=== PATIENT | female | born 1940 | race African-American/Black ===

== ENCOUNTER 2019-03-14 08:55 | Outpatient (CLI) | payer MEDICARE ==
--- NOTE | 2019-03-14 10:23 | MMO ---
Bilateral MAMMO Bilat Diag DDI+ANTELMO. CLINICAL HISTORY: Patient is 78 years old and is seen for diagnostic exam and lump or thickening in the left breast. The patient has no family history of breast cancer. The patient has no personal history of cancer. The patient has a history of left Excisional Biopsy in 2016 - benign. VIEWS: The views performed were: bilateral craniocaudal with tomosynthesis; bilateral mediolateral oblique with tomosynthesis; and bilateral mediolateral with tomosynthesis. FILMS COMPARED: The present examination has been compared to prior imaging studies performed at [facility] on 07/23/2012, 08/08/2014, 08/10/2015 and 03/14/2019. This study has been interpreted with the assistance of computer-aided detection. MAMMOGRAM FINDINGS: There are scattered fibroglandular densities. Finding 1: There are stable benign appearing calcifications seen in both breasts. There are also vascular calcifications. Finding 2: There are new post operative changes seen in the left breast. Finding 3: There is a high density, oval mass measuring 25 millimeters with circumscribed margins seen in the upper-outer region of the left breast. IMPRESSION: FINDING 3: MASS IN THE LEFT BREAST IS SUSPICIOUS. AN ULTRASOUND-GUIDED BREAST BIOPSY IS RECOMMENDED. RESULTS AND RECOMMENDATIONS DISCUSSED WITH THE PATIENT AND QUESTIONS ANSWERED. THE RESULTS OF THIS EXAM WERE SENT TO THE PATIENT. ACR BI-RADS Category 4 - Suspicious abnormality - biopsy should be considered MAMMOGRAPHY NOTE: 1. A negative mammogram report should not delay a biopsy if a dominant of clinically suspicious mass is present. 2. Approximately 10% to 15% of breast cancers are not detected by mammography. 3. Adenosis and dense breasts may obscure an underlying neoplasm. Reported by: ZAHEER TODD MD Electonically Signed: [id number]
--- NOTE | 2019-03-14 11:30 | ULT ---
LIMITED LEFT BREAST ULTRASOUND: DATE: 03/14/2019. PROVIDED CLINICAL HISTORY: Left breast palpable abnormality. FINDINGS: Limited sonographic interrogation of the left breast was performed in the region of mammographic and palpable concern. There is a circumscribed hypoechoic mass with internal vascularity at the 1:30 pos ition of the left breast corresponding to the palpable and mammographic finding. This demonstrates s mooth margins and no definite associated shadowing. This is oval to round in shape. This measures a bout 2.5 x 1.7 x 2.1 cm. IMPRESSION: BIRADS category 4 - suspicious abnormality. Ultrasound-guided biopsy is recommended of the left [address] st mass at 1:30. Results and recommendations discussed with the patient and questions answered. POS: OFF
== END 2019-03-14 08:56 | disposition home or self-care (01) ==
LOC: BICMAMMO 08:55
PROVIDERS: ATTEND Family Medicine
DX: N64.4 Mastodynia (principal)
CPT/HCPCS: 76642; 77066; G0279

== ENCOUNTER → 2019-04-23 | Day surgery (SDC) | payer MEDICARE ==
--- NOTE | 2019-04-23 15:59 | ULT ---
SONOGRAPHIC-GUIDED BIOPSY LEFT BREAST MASS: HISTORY: Left breast mass. FINDINGS: After explaining the procedure and answering all questions, the lobular heterogeneous mass at the sup erolateral aspect of the left breast was again visualized. Sterile technique, buffered local anesthe lio, sonographic guidance, and a lateral approach were used to carefully advance a 14-gauge core biop sy needle to the level of the lobular heterogeneous mass. A total of 2 core specimens were obtained and eventually submitted to pathology for evaluation. At the time of each biopsy acquisition, liquid was seen to mix within the heterogeneous mass and leak out of the needle tract. Localization clip was placed in the biopsy bed under sonographic control. The patient tolerated the procedure well and was eventually dismissed in good condition. IMPRESSION: Technically successful sonographic-guided biopsy left breast mass. Appearance of the mass at the wili e of biopsy suggests that it is a complex fluid collection such as abscess. Pathology is pending. POS: RONIT
--- NOTE | 2019-04-24 10:13 | MMO ---
Left Breast MAMMO Unilat Diag DDI LT. CLINICAL HISTORY: Patient is 78 years old and is seen for diagnostic exam. The patient has no family history of breast cancer. The patient has no personal history of cancer. The patient has a history of left Excisional Biopsy in 2016 - benign. VIEWS: The views performed were: right craniocaudal and right mediolateral oblique. FILMS COMPARED: The present examination has been compared to prior imaging studies performed at [facility] on 08/08/2014, 08/10/2015 and 03/14/2019. This study has been interpreted with the assistance of computer-aided detection. MAMMOGRAM FINDINGS: There are scattered fibroglandular densities. There is a new biopsy clip seen in the upper-outer region of the left breast. IMPRESSION: NEW BIOPSY CLIP IN THE LEFT BREAST IS CONFIRMED UTILIZING POST PROCEDURE MAMMOGRAM. THE RESULTS OF THIS EXAM WERE SENT TO THE PATIENT. MAMMOGRAPHY NOTE: 1. A negative mammogram report should not delay a biopsy if a dominant of clinically suspicious mass is present. 2. Approximately 10% to 15% of breast cancers are not detected by mammography. 3. Adenosis and dense breasts may obscure an underlying neoplasm. Reported by: RIVER GARCIA MD Electonically Signed: [id number]
== END ==
LOC: BICULT 11:38
PROVIDERS: ATTEND Family Medicine
PROC: 0H9 Skin and Breast, Drainage (ICD-10-PCS; principal; 2019-04-23)
DX: N63.21 Unspecified lump in the left breast, upper outer quadrant (principal); Z88.0 Allergy status to penicillin
CPT/HCPCS: 19083; 88305; 88341; 88342

== ENCOUNTER 2019-10-06 12:53 | Observation (INO) | payer MEDICARE ==
[2019-10-06 13:29] LABS: #Basophils 0.1 thou/uL (0.0-0.2); #Eosinphils 0.3 thou/uL (0.0-0.7); #Lymphocytes 2.2 thou/uL (1.20-3.40); #Monocytes 0.5 thou/uL (0.11-0.59); #Neutrophils 3.2 thou/uL (1.40-6.50); %Basophils 1.3 % (0.0-1.0); %Eosinophils 4.3 % (0.0-10.0); %Lymphocytes 35.6 % (21.0-51.0); %Monocytes 7.5 % (0.0-10.0); %Neutrophils 51.2 % (42.0-75.0); Hemoglobin 11.4 g/dL (12.0-16.0); Mean Corpuscular HGB CONC 31.6 g/dL (32.0-36.0); Mean Corpuscular Hemoglobin 30.1 pg (27.0-31.0); Mean Corpuscular Volume 95.3 fL (78.0-98.0); Mean Platelet Volume 8.4 fL (7.4-10.4); Platelet Count 198 thou/uL (130-400); RBC Distribution Width 13.4 % (11.5-14.5); Red Blood Cell (RBC) Count 3.79 mill/uL (4.20-5.40); White Blood Cell (WBC) Count 6.2 thou/uL (4.8-10.8)
[2019-10-06 13:48] LABS: ALT (SGPT) 7 U/L (8-55); AST (SGOT) 17 U/L (5-34); Albumin 3.7 g/dL (3.4-4.8); Alkaline Phosphatase 63 U/L (40-110); Anion Gap 11 mmol/L (10-20); BUN (Urea Nitrogen) 19 mg/dL (9.8-20.1); Bilirubin, Total 0.3 mg/dL (0.2-1.2); CK (CPK) 229 U/L (29-168); Calc. Creatinine Clearance 0 mL/min (70-130); Calcium 9.1 mg/dL (7.8-10.44); Carbon Dioxide 25 mmol/L (23-31); Chloride 108 mmol/L (98-107); Estimated GFR-MDRD 43; Globulin 3.6 g/dL (2.4-3.5); Glucose 83 mg/dL (83-110); Potassium 4.1 mmol/L (3.5-5.1); Protein, Total 7.3 g/dL (6.0-8.3); Sodium 140 mmol/L (136-145)
--- NOTE | 2019-10-06 14:20 | RAD ---
PORTABLE CHEST ONE VIEW: Date: 10-06-2019 Time: 1:26 p.m. History: Syncope and collapse FINDINGS: Comparison made with exam of 01-14-14. The heart is enlarged. There is continued elevation of the right hemidiaphragm. The lungs are well ex panded without lobar consolidation, pneumothoraces, jackelin pulmonary edema or pleural effusions. IMPRESSION: No acute process. POS: ISRRAEL
[2019-10-06] MEDS ORDERED: Amlodipine 10 MG TAB PO SCH (15:30)
--- NOTE | 2019-10-06 15:36 | RAD ---
EXAM: 3 views of the right wrist HISTORY: Wrist pain after fall COMPARISON: None FINDINGS: 3 views of the right wrist shows severe degenerative changes of the radiocarpal joint. Ther e is an irregular appearance of the scaphoid which may represent degenerative change, but an acute fracture through the scaphoid cannot be excluded. Moderate diffuse soft tissue swelling is seen. IMPRESSION: Severe degenerative changes joint with questionable acute scaphoid abnormality.
--- NOTE | 2019-10-06 15:37 | RAD ---
EXAM: 2 views of the right humerus HISTORY: right arm pain after fall COMPARISON: None FINDINGS: 2 views of the right humerus shows no evidence of acute fracture or dislocation. No degener ative changes are seen. No soft tissue swelling is present. IMPRESSION: No evidence of acute osseous abnormality.
--- NOTE | 2019-10-06 15:37 | RAD ---
EXAM: 4 views of the right elbow HISTORY: Elbow pain after fall COMPARISON: None FINDINGS: No elbow effusion is seen. There is no evidence of acute fracture or dislocation. No signi ficant degenerative changes are seen. No soft tissue swelling is present. IMPRESSION: No evidence of acute osseous abnormality.
[2019-10-06] MEDS ORDERED: Ondansetron ODT 4 MG TAB PO PRN (16:38)
[2019-10-06] MEDS ORDERED: Acetaminophen 325 MG TAB PO PRN (16:38)
--- NOTE | 2019-10-06 16:42 | CT ---
CT head noncontrast HISTORY: Syncope. COMPARISON: 01/20/2007. FINDINGS: There is no evidence of acute intracranial hemorrhage or infarct. The ventricles appear nor mal in size, shape and position. There is no mass effect or shift of midline structures. Densely calcified lesion along the left side of the anterior falx is stable. IMPRESSION : No acute intracranial abnormalities are demonstrated.
[2019-10-06] MEDS ORDERED: hydrALAZINE 20 MG/ML VIAL SLOW IVP SCH (16:46)
--- NOTE | 2019-10-06 16:59 | PDOC.FPRHP ---
- History of Present Illness Chief Complaint: fall History of Present Illness: 79 y/o F with PMHx HTN, CAD s/p stents presented to the ED with arm pain after a fall occuring around 1000 the previous day. She states she was going outside to walk her dogs, when she fell on her porch, landing on her R side. She does endorse LOC, and believes she was only down for a short time. She denies any dizziness or lightheadedness prior to the fall, but does believe she passed out. After the fall, she was able to get up on her own and get back into her home. After the fall, she developed pain in her R wrist and arm. The pain worsened overnight, and she tried to go to an urgent care near her home for her arm pain, but came to the ED because the urgent care was closed. She has not had previous falls or spells of LOC. Upon evaluation in the ED, she was noted to be hypertensive and bradycardic. She denies any symptoms of headache, chest pain, SOB, diaphoresis, palpitations. Reports that she checks her blood pressure daily at home, usually has SBP in the 130s but today was 160. She does not currently have a PCP, medications managed by her dimensional engineer in [place], Dr. Ramsay. She reports compliance with medications, including three anti-hypertensives, but she does not know which medications she is taking other than amlodipine. - Allergies/Adverse Reactions Allergies Allergy/AdvReac Type Severity Reaction Status Date / Time Penicillins Allergy Verified 06/07/19 20:47 - Home Medications Medication Instructions Recorded Confirmed Type Htn 08/22/12 08/22/12 History Naproxen [Naprosyn] 500 mg PO BID PRN #30 tab 08/22/12 Rx Thyroid Med 08/22/12 08/22/12 History Allopurinol 100 mg PO DAILY 10/07/19 10/07/19 History Atenolol 25 mg PO DAILY 10/07/19 10/07/19 History DULoxetine [Cymbalta] 60 mg PO DAILY 10/07/19 10/07/19 History Hydrochlorothiazide 12.5 mg PO DAILY 10/07/19 10/07/19 History Levothyroxine Sodium [Synthroid] 75 mcg PO DAILY 10/07/19 10/07/19 History Losartan Potassium 100 mg PO DAILY 10/07/19 10/07/19 History Omeprazole 40 mg PO DAILY 10/07/19 10/07/19 History Pravastatin Sodium 20 mg PO HS 10/07/19 10/07/19 History - History PMHx: CAD s/p stents, HTN PSHx: cardiac stents, breast biopsy FHx: unknown Social: Denies tobacco, etoh, drug use. Lives at home alone, feels safe at home. 2 sons, one who lives in [place] and one who lives in [place]. - Review of Systems General: denies: fever/chills, weight/appetite/sleep changes, night sweats, fatigue Eyes: denies: vision changes ENT: denies: nasal congestion Respiratory: denies: cough, congestion, shortness of breath Cardiovascular: denies: chest pain, palpitation, edema Gastrointestinal: denies: nausea, vomiting, diarrhea, constipation, abdominal pain Genitourinary: denies: dysuria Skin: denies: rashes Musculoskeletal: reports: pain Neurological: reports: syncope. denies: weakness - Vital signs BP: 204/63 HR: 54 RR: 18 Tmax: 98.2F Pox: 97% on RA Wt: 82.5kg - Physical Exam Constitutional: NAD, awake, alert and oriented HEENT: normocephalic and atraumatic, PERRLA, EOMI, conjunctiva clear, no scleral icterus, grossly normal vision, grossly normal hearing, MMM -HEENT: edentulous Neck: supple, no LAD Heart: normal S1/S2, no murmurs/rubs/gallops, no edema -Heart: bradycardia; pulses present in LUE, bilateral LE, unable to assess RUE due to splinting Lungs: CTAB, no respiratory distress, no rales/rhonchi, no wheezing, no retractions Abdomen: soft, non-tender, bowel sounds present, no masses/distention -Musculoskeletal: RUE ROM limited 2/2 pain, ROM otherwise intact. Splint in place on R hand/ forearm. Neurological: CN II-XII intact, other (5/5 strength) Skin: no rash/lesions Heme/Lymphatic: no unusual bruising or bleeding, no purpura, no LAD Psychiatric: normal mood and affect, good judgment and insight, intact recent and remote memory FMR H&P: Results - Labs Result Diagrams: 10/07/19 04:07 10/07/19 04:07 Lab results: WBC 6.2 thou/uL (4.8-10.8) 10/06/19 13:21 Hgb 11.4 g/dL (12.0-16.0) L 10/06/19 13:21 Hct 36.1 % (36.0-47.0) 10/06/19 13:21 MCV 95.3 fL (78.0-98.0) 10/06/19 13:21 Plt Count 198 thou/uL (130-400) 10/06/19 13:21 Neutrophils % 51.2 % (42.0-75.0) 10/06/19 13:21 Sodium 140 mmol/L (136-145) 10/06/19 13:21 Potassium 4.1 mmol/L (3.5-5.1) 10/06/19 13:21 Chloride 108 mmol/L (98-107) H 10/06/19 13:21 Carbon Dioxide 25 mmol/L (23-31) 10/06/19 13:21 BUN 19 mg/dL (9.8-20.1) 10/06/19 13:21 Creatinine 1.42 mg/dL (0.6-1.1) H 10/06/19 13:21 Glucose 83 mg/dL (83-110) 10/06/19 13:21 Calcium 9.1 mg/dL (7.8-10.44) 10/06/19 13:21 Total Bilirubin 0.3 mg/dL (0.2-1.2) 10/06/19 13:21 AST 17 U/L (5-34) 10/06/19 13:21 ALT 7 U/L (8-55) L 10/06/19 13:21 Alkaline Phosphatase 63 U/L (40-110) 10/06/19 13:21 Creatine Kinase 229 U/L (29-168) H 10/06/19 13:21 Serum Total Protein 7.3 g/dL (6.0-8.3) 10/06/19 13:21 Albumin 3.7 g/dL (3.4-4.8) 10/06/19 13:21 - EKG Interpretation EKG: EKG reviewed: sinus bradycardia, no evidence of heart block FMR H&P: A/P - Plan Syncopal episode, possible Leading to unwitnessed fall at home. Possibly due to bradycardia, EKG with sinus bradycardia. CT head negative. Initial troponin negative. -f/u repeat troponin -admit to tele -echo ordered Hypertensive urgency Reported SBP of >200 in ED, although noted that IV was placed under edge of cuff. Manually checked BP was SBP of 160. -10 mg hydralazine administered on admission -PRN hydralazine for SBP > 180 -will avoid labetalol as PRN due to bradycardia -continue to monitor vitals -will request medication list from pharmacy, [facility] in [place] Bradycardia HR 50s in the ED. Asymptomatic on admission although possibly a contributing factor to fall. No signs of heart block on EKG, sinus bradycardia. Consider cardiac etiology vs medication as cause. -continue to monitor on tele -echo as above -f/u TSH PEBBLES Cr 1.42, unknown baseline. -will check FeNa, start LR @ 75ml/h for 2 bags if signs of pre-renal PEBBLES Scaphoid fracture, possible -splinted in ED -f/u w/ ortho outpatient recommended CAD s/p stents Sees Dr. Ramsay, who has been managing her primary care since her PCP retired. Takes ASA at home. Unsure of other medications she is taking. -continue ASA Dispo: admit to tele, obs IVF: SL Diet: Regular diet PPx: lovenox FMR H&P: Upper Level - Plan Date/Time: 10/06/19 [id number] IMauricio DO, have evaluated this patient and agree with findings/plan as outlined by spring internship resident. Pertinent changes/additions are listed here. This is 79 yo female with a pmh of HLD, HTN who presents to the ER with a cc of a syncopal episode. She states that she was taking her dog outside when she woke up on the ground. She denies any head trauma or current headache but does report some right hand and wrist pain. She denies this happening before. She denies chest pain, SOB, nausea, vomiting, or dizziness. She denies any anticoagulation use at this time. She states her BP usually runs at 130/70s. She denies any palpitations or skipped beats. Objective: Vitals: BP 210/82, HR 56, RR 20, Temp 98.2, SpO2 97, Wt 82 kg General: NAD HEENT: AT/NC, MMM Cardio: bradycardic, regular, no murmurs Respiratory: CTAB, non-labored Extremities: 2+ pulses, no edema Neuro: CN II-XII grossly intact, moves all extremities, 5/5 strength, cerebellar testing negative A/P Syncope likely cardiogenic -Admit to tele obs -Consult cardiology in the AM -Will order TTE for tomorrow -Pending CT brain -CXR no acute process -Right elbow xray no evidence of acute process -XR humerus no acute process XR wrist: severe degenerative changes joint questionable acute scaphoid abnormality Possible right scaphoid fracture -S/P thumb spica splint -Pain management -Likely outpt orthopedics consultation PEBBLES vs. CKD 3 -Will monitor with BMP -Control BP -Gentle hydration after FeNa HTN -ER reports systolic BP 210, manual palpated systolic BP measured at 160s -Will work to lower her BP, s/p amlodipine 10mg in the ER -PRN medications in place HLD -Continue home medications Code: Full Prophylaxis: Lovenox Family: None at bedside Fluids: Pending FeNa Diet: HH Disposition: DC in1-2 days PCP: LETY Pharmacy: [facility] in [place], [place] Addendum - Attending - Attending Attestation Date/Time: 10/07/19 0563 I personally evaluated the patient and discussed the management with the team. I agree with the History, Examination, Assessment and Plan documented above with any addition or exceptions noted below.
[2019-10-06] MEDS ORDERED: hydrALAZINE 20 MG/ML VIAL ONE (17:31)
[2019-10-06 17:52] LABS: Troponin I 0.026 ng/mL (< 0.028)
[2019-10-06 20:29] LABS: Creatinine, Urine 23.38 mg/dL (47-110)
--- NOTE | 2019-10-06 20:39 | CT ---
CT right wrist noncontrast HISTORY: Injury. Possible fracture. FINDINGS: The scaphoid waist is intact. Several small subcortical cysts are present within the scapho id and other carpal bones. Joint space narrowing and osteophytosis throughout the wrist, joint space narrowing and subchondral s clerosis most pronounced at the radiocarpal joint. No acute fracture or dislocation are apparent. IMPRESSION : No acute osseous abnormalities are demonstrated. There are degenerative changes, including subcortica l cysts of the scaphoid that mimic a fracture on radiographs.
[2019-10-06] MEDS ORDERED: hydrALAZINE 20 MG/ML VIAL SLOW IVP PRN (20:45)
[2019-10-06] MEDS ORDERED: Enoxaparin Sodium 40 MG/0.4 ML SYRINGE SC SCH (21:00)
[2019-10-06 21:42] LABS: Troponin I 0.032 ng/mL (< 0.028)
[2019-10-06] MEDS: Sodium Chloride 0.9% 10 ML ONE (22:39)
[2019-10-07 01:22] LABS: Troponin I 0.041 ng/mL (< 0.028)
[2019-10-07 02:51] VITALS: BMI 34.2
[2019-10-07 04:16] LABS: #Eosinphils 0.2 thou/uL (0.0-0.7); #Lymphocytes 2.1 thou/uL (1.20-3.40); #Monocytes 0.4 thou/uL (0.11-0.59); #Neutrophils 3.9 thou/uL (1.40-6.50); %Basophils 0.6 % (0.0-1.0); %Eosinophils 3.6 % (0.0-10.0); %Lymphocytes 31.4 % (21.0-51.0); %Monocytes 5.7 % (0.0-10.0); %Neutrophils 58.8 % (42.0-75.0); Hemoglobin 11.6 g/dL (12.0-16.0); Mean Corpuscular HGB CONC 32.4 g/dL (32.0-36.0); Mean Corpuscular Volume 95.9 fL (78.0-98.0); Platelet Count 184 thou/uL (130-400); RBC Distribution Width 13.4 % (11.5-14.5); Red Blood Cell (RBC) Count 3.73 mill/uL (4.20-5.40); White Blood Cell (WBC) Count 6.6 thou/uL (4.8-10.8)
[2019-10-07 05:24] LABS: Troponin I 0.037 ng/mL (< 0.028)
[2019-10-07 05:35] LABS: Anion Gap 13 mmol/L (10-20); BUN (Urea Nitrogen) 16 mg/dL (9.8-20.1); Calc. Creatinine Clearance 60 mL/min (70-130); Calcium 9.4 mg/dL (7.8-10.44); Carbon Dioxide 22 mmol/L (23-31); Chloride 109 mmol/L (98-107); Estimated GFR-MDRD 63; Glucose 102 mg/dL (83-110); Potassium 3.9 mmol/L (3.5-5.1); Sodium 140 mmol/L (136-145)
--- NOTE | 2019-10-07 05:36 | PDOC.FM ---
- Subjective Subjective: Pt resting comfortably in bed. No complaints today. No arm pain. - Objective Vital Signs & Weight: Vital Signs (12 hours) Temp Pulse Resp BP BP Pulse Ox 10/07/19 04:30 97.7 F 64 18 174/68 H 98 10/07/19 00:15 97.8 F 62 18 165/69 H 98 10/06/19 20:00 98.5 F 77 18 172/72 H 99 10/06/19 18:20 74 16 179/73 H 99 Weight Weight 84.822 kg Result Diagrams: 10/07/19 04:07 10/07/19 04:07 Phys Exam - Physical Examination Constitutional: NAD HEENT: PERRLA Respiratory: no wheezing, no rales, no rhonchi, clear to auscultation bilateral Cardiovascular: RRR, no significant murmur Gastrointestinal: soft, non-tender, no distention, positive bowel sounds Musculoskeletal: no edema, pulses present Psychiatric: normal affect, A&O x 3 Skin: no rash, normal turgor, cap refill <2 seconds Dx/Plan - Plan Plan: 79 y/o F presents c/o arm pain after a fall after a syncopal episode and found to have a possible R scaphoid fracture. ##Syncope Leading to unwitnessed fall at home. Possibly due to bradycardia, EKG with sinus bradycardia. CT head negative. -trop trend: 0.032--0.041--0.037 -telemetry showed no events overnight -echo ordered pending -PT eval ##Possible R scaphoid fracture -CT showed scaphoid-lunate advanced collapsed -splinted in ED -tylenol pain prn -ortho recs: outpatient f/u with Dr. Bhakta, in velcro splint. ##HTN Reported SBP of >200 in ED, although noted that IV was placed under edge of cuff. Manually checked BP was SBP of 160. -PRN hydralazine for SBP > 180 -continue to monitor vitals -will request medication list from pharmacy, [facility] in [place] -home meds: losartan, HCTZ, will hold atenolol ##Bradycardia HR 50s in the ED. Asymptomatic on admission although possibly a contributing factor to fall. No signs of heart block on EKG, sinus bradycardia. Consider cardiac etiology vs medication as cause. -holding home atenolol -continue to monitor on tele -echo as above -12 lead EKG ##Hypothyroidism -TSH: 0.292 -T4 0.92 -changed levothyroxine to 75mcg ##PEBBLES -Cr 1.42, unknown baseline-->1.02 -FeNa = 5.8% -renal U/S done, pending report ##CAD s/p stents Sees Dr. Ramsay, who has been managing her primary care since her PCP retired. Takes ASA at home. Unsure of other medications she is taking. -continue ASA -restarted home pravastatin ##GERD -restarted omeprazole Code: Full Prophylaxis: Lovenox Diet: HH PCP: LETY, [facility] Dr. Ramsay Pharmacy: [facility] in [place], [place] Disposition: awaiting echo results. will make sure pt can void on her own. PT eval. BP control. Addendum - Attending - Attending Attestation Date/Time: 10/07/19 1899 I personally evaluated the patient and discussed the management with Dr. Morel. I agree with the History, Examination, Assessment and Plan documented above with any addition or exceptions noted below. Patient reports feeling well. Awaiting imaging reports. Needs improved BP control, consulting PT. Making sure she can void and if safe to discharge home then can probably get that set up this afternoon, possibly tomorrow.
[2019-10-07] MEDS: Sodium Chloride 0.9% 10 ML ONE (08:24)
--- NOTE | 2019-10-07 08:35 | ULT ---
RENAL ULTRASOUND: HISTORY: Findings suggesting renal obstruction. FINDINGS: Real-time imaging of the right and left kidneys was performed. The right kidney measures 9.5 and the left kidney 9.1 cm in size. No cyst, mass, or obstruction. The bladder region is unremarkable. Bi lateral ureteral jets are identified. IMPRESSION: Unremarkable renal ultrasound. POS: ANABELLA
--- NOTE | 2019-10-07 08:57 | CON ---
DATE OF CONSULTATION: HISTORY OF PRESENT ILLNESS: Ms. Franco is a 79-year-old female, status post multiple medical history of history of hypertension, coronary artery disease, previous stents and a fall presents with right upper extremity pain, previous history of existing pain. The patient is admitted by [facility] for medical management. PAST MEDICAL HISTORY: Coronary artery disease with angioplasty, hypertension, seizures, breast biopsy. ALLERGIES: NO KNOWN DRUG ALLERGIES. MEDICATIONS: Please see full list for full details. SOCIAL HISTORY: Denies any tobacco or alcohol. Lives at home. REVIEW OF SYSTEMS: Noncontributory. PHYSICAL EXAMINATION: VITAL SIGNS: This morning, temperature 97.7, pulse 64, blood pressure 174/68, respiratory rate 18, and oxygen saturation 98. GENERAL: Alert and oriented female, in no acute distress. EXTREMITIES: Right upper extremity in a splint, clean, dry, and intact. Sensation intact distally. Brisk cap refill. No open wounds per report. IMAGING DATA: Radiographs of her right wrist show what appears to be a SLAC wrist with no obvious scaphoid fracture likely chronic degenerative changes. CT scan shows no acute fracture consistent with scapholunate advanced collapsed with radiocarpal degenerative changes. IMPRESSION: Right scapholunate advanced collapse wrist. ASSESSMENT AND PLAN: The patient will be placed in a Velcro wrist splint. She will be referred to Dr. Bhakta as an outpatient basis for further evaluation and treatment. Job ID: [id number]
[2019-10-07] MEDS ORDERED: Amlodipine 10 MG TAB PO SCH (09:00)
[2019-10-07] MEDS ORDERED: Prevnar 13-Val Conj/PF 0.5 ML SYRINGE IM ONE (09:00)
[2019-10-07] MEDS ORDERED: DULoxetine 60 MG CAP PO SCH (10:00)
[2019-10-07] MEDS ORDERED: Allopurinol 100 MG TAB PO SCH (10:00)
[2019-10-07] MEDS ORDERED: Hydrochlorothiazide 25 MG TAB PO SCH (10:00)
[2019-10-07] MEDS ORDERED: Losartan 25 MG TAB PO SCH (10:00)
[2019-10-07 13:01] VITALS: TEMP 98
[2019-10-07 15:49] VITALS: BP 174/74
[2019-10-07] MEDS ORDERED: Pravastatin Sodium 20 MG TAB PO SCH (21:00)
[2019-10-07] MEDS ORDERED: Simvastatin 5 MG TAB PO SCH (21:00)
--- NOTE | 2019-10-08 08:46 | DIS ---
DATE OF ADMISSION: 10/06/2019 DATE OF DISCHARGE: 10/07/2019 RESIDENT: Susana Morel DO ADMITTING ATTENDING: Kamar Mcgarry MD DISCHARGE ATTENDING: Toño Vu MD CONSULTS: Antelmo Gomez MD, Orthopedics. PROCEDURES: CT brain without contrast showed no acute intracranial abnormalities. X-ray of right humerus: showed no evidence of acute osseous abnormality. X-ray of right elbow: showed no evidence of acute osseous abnormality. Right wrist showed severe degenerative changes with questionable acute scaphoid abnormality. X-ray of chest: showed no acute process. CT right upper extremity showed no acute osseous abnormality. There are degenerative changes, including subcortical cysts of the scaphoid that may make a fracture on radiograph. Bilateral renal ultrasound was unremarkable. PRIMARY DIAGNOSES: Syncopal episode likely cardiogenic due to medication, right scaphoid-lunate collapsed wrist, asymptomatic bradycardia, PEBBLES SECONDARY DIAGNOSES: Hypothyroidism, hypertension, chronic obstructive pulmonary disease, and gastroesophageal reflux disease. DISCHARGE MEDICATIONS: 1. Allopurinol 100 mg p.o. daily. 2. Duloxetine 60 mg p.o. daily. 3. HCTZ 12.5 mg p.o. daily. 4. Levothyroxine 75 mcg p.o. daily. 5. Losartan 100 mg p.o. daily. 6. Omeprazole 40 mg p.o. daily. 7. Pravastatin 20 mg p.o. at bedtime. DISCONTINUED MEDICATIONS: Atenolol 25 mg. HISTORY OF PRESENT ILLNESS: This is a 79-year-old female who presented to the ED with R arm pain after a fall precipitated by a syncopal event. She said that she was going outside to walk her dog when she fell on her porch landing on her right side. She did endorse loss of consciousness and believes that she was down for a short time. She denied any dizziness and lightheadedness, CP/SOB, diaphoresis or, weakness/numbness prior to the fall. This was an unwitnessed event and pt is not on anticoagulants. After the fall, she developed pain in her right wrist and arm that worsened, bringing her into the ED. In the ED, imaging showed a right possible scaphoid fracture as seen above. During her ED stay, it was found that she was bradycardic in the 40s without symptoms and she had severe range BP readings, so she was admitted to telemetry for observation. HOSPITAL COURSE: 1. Pt was found to have no recorded bradycardic events during the rest of her stay. Pt's home medication Atenolol was discontinued as this was thought to be the cause of her bradycardic events and could have potentially caused her syncopal event. 2. She was initially hypertensive due to not being on her home medications, but after being restarted on her home blood pressure medications, her BPs stabled out. Of note, it was found that it is better to do manual blood pressures on her due to pt having pseudohypertension. 2. Dr. Gomez was consulted about pt's possible R scaphoid fracture, and his impression was that this was a SLAC wrist with radiocarpal degenerative changes that did not require surgery. He recommended splinting and outpatient follow up for patient. 3. She also had a post-renal PEBBLES (FeNa of 5.8%), so a renal ultrasound was done , which was unremarkable as stated above. 4. On labs, pt TSH was 0.292, T4 was 0.92 so her levothyroxine was changed from 88 mcg to 75 mcg. Changes to medication regimen was discussed with patient and she voiced understanding. DISPOSITION: Stable. DISCHARGE INSTRUCTIONS: 1. Location: Home. 2. Diet: Heart healthy. 3. Activity: As tolerated. 4. Follow up in one to two weeks with her communication center operator for med reconciliation and follow up on thyroid medication. Suggested that pt find PCP to follow up with regularly. Pt to also follow up with Dr. Bhakta of orthopedics outpatient. Job ID: [id number] MTDD
[2019-10-08] MEDS ORDERED: Non-Formulary Item 1 EACH (Losartan Potassium [Losartan Potassium] 100 MG) PO SCH (09:00)
[2019-10-08] MEDS ORDERED: Non-Formulary Item 1 EACH (Hydrochlorothiazide [Hydrochlorothiazide] 12.5 MG) PO SCH (09:00)
[2019-10-08] MEDS ORDERED: Levothyroxine Sodium 75 MCG TAB PO SCH (09:00)
[2019-10-08] MEDS ORDERED: Hydrochlorothiazide 25 MG TAB PO SCH (09:00)
[2019-10-08] MEDS ORDERED: Non-Formulary Item 1 EACH (Omeprazole [Omeprazole] 40 MG) PO SCH (09:00)
[2019-10-08] MEDS ORDERED: Losartan 25 MG TAB PO SCH (09:00)
[2019-10-08] MEDS ORDERED: Allopurinol 100 MG TAB PO SCH (09:00)
[2019-10-08] MEDS ORDERED: DULoxetine 60 MG CAP PO SCH (09:00)
== END 2019-10-07 16:31 | disposition home or self-care (01) ==
LOC: ERS 12:53 → 2NO 16:23
PROVIDERS: ADMIT Family Medicine; ATTEND Family Medicine
DX: R55 Syncope and collapse (principal); M19.031 Primary osteoarthritis, right wrist; R00.1 Bradycardia, unspecified; N17.9 Acute kidney failure, unspecified; E03.9 Hypothyroidism, unspecified; I16.0 Hypertensive urgency; I10 Essential (primary) hypertension; J44.9 Chronic obstructive pulmonary disease, unspecified; K21.9 Gastro-esophageal reflux disease without esophagitis; I25.10 Atherosclerotic heart disease of native coronary artery without angina pectoris; E78.5 Hyperlipidemia, unspecified; Z87.891 Personal history of nicotine dependence; Z23 Encounter for immunization; Z79.899 Other long term (current) drug therapy; Z88.0 Allergy status to penicillin; Z95.5 Presence of coronary angioplasty implant and graft; W19.XXXA Unspecified fall, initial encounter
CPT/HCPCS: 29515; 70450; 71045; 73060; 73080; 73110; 73200; 76770; 80048; 82550; 82570; 84300; 84439; 84484 ×4; 85025; 90670; 93005; 93306; 94760; 96374; 97139; 99285; G0009; 36415; 80053; 84443; 90471; G0378; J0360; J1650

== ENCOUNTER 2020-01-14 13:49 | Outpatient (CLI) | payer MEDICARE ==
--- NOTE | 2020-01-14 16:12 | MRI ---
MRI RIGHT SHOULDER WITHOUT CONTRAST: 01/14/20 HISTORY: Subacromial impingement of right shoulder. COMPARISON: Radiograph 11/14/19. FINDINGS: BICEPS TENDON: Severe interstitial tearing of the intra-articular tendon. LABRUM: Chondrolabral junctional tear throughout the posterior labrum. Intrasubstance tear throughout the sup erior labrum. ROTATOR CUFF: Severe tendinosis and interstitial tearing throughout the subscapularis tendon. Full thickness, full width supraspinatus tendon tear from the footprint retracted to the mid humeral head. There is a prop agation tear to the anterior one half fibers infraspinatus tendon which was also torn and retracted w ith severe interstitial tearing and undersurface partial tearing throughout the remainder of the infr aspinatus tendon. BONES: Type II acromion. Large acromioclavicular joint osteophytes. Normal glenoid version. MUSCLES: Moderate atrophy of the supraspinatus and infraspinatus muscles. SOFT TISSUES: Large subacromial subdeltoid bursal effusion due to communication with the glenohumeral joint. Mild s ynovitis of the axillary pouch. IMPRESSION: 1. Full thickness full width supraspinatus tendon tear from the footprint retracted to the mid h umeral head. 2. Propagation of supraspinatus tendon tear into the anterior one half infraspinatus tendon whic h also has a full thickness full width tear from the footprint retracted to the mid humeral head and there is associated high grade tendinosis and interstitial tearing of the remainder of the fibers. 3. Moderate atrophy of the supraspinatus and infraspinatus muscles. 4. Extensive tendinosis and interstitial tearing throughout the subscapularis tendon. 5. Chondrolabral junction with tear of the posterior labrum as well as intrasubstance tear and v olume loss of the superior labrum. 6. Severe intra-articular biceps tendon and interstitial tearing. POS: [facility]
== END 2020-01-14 13:50 | disposition home or self-care (01) ==
LOC: BICMRI 13:49
PROVIDERS: ATTEND Orthopaedic Surgery Hand Surgery
DX: M75.41 Impingement syndrome of right shoulder (principal); M75.101 Unspecified rotator cuff tear or rupture of right shoulder, not specified as traumatic; M75.91 Shoulder lesion, unspecified, right shoulder

== ENCOUNTER 2020-02-17 06:30 | Outpatient (CLI) | payer MEDICARE ==
[2020-02-17 08:41] LABS: #Eosinphils 0.3 10x3/uL (0.0-0.5); #Monocytes 0.4 10x3/uL (0.0-1.1); #Neutrophils 2.6 10x3/uL (1.5-8.4); %Basophils 0.4 % (0.0-2.0); %Eosinophils 4.6 % (0.0-6.0); %Lymphocytes 38.8 % (18.0-47.0); %Monocytes 6.9 % (0.0-10.0); %Neutrophils 48.9 % (40.0-75.0); Hemoglobin 11.4 g/dL (12.0-16.0); Mean Corpuscular HGB CONC 31.9 G/DL (32.0-36.0); Mean Corpuscular Hemoglobin 31.1 PG (27.0-33.0); Mean Corpuscular Volume 97.3 fl (80.0-100.0); Platelet Count 198 10x3/uL (130-400); RBC Distribution Width 13.3 % (11.5-14.5); Red Blood Cell (RBC) Count 3.67 10x6/uL (3.90-5.20); White Blood Cell (WBC) Count 5.4 10x3/uL (4.5-11.0)
[2020-02-17 08:56] LABS: Anion Gap 16 mmol/L (10-20); BUN (Urea Nitrogen) 21 mg/dL (9.8-20.1); Calc. Creatinine Clearance 0 mL/min (70-130); Calcium 9.3 mg/dL (7.8-10.44); Carbon Dioxide 26 mmol/L (23-31); Chloride 106 mmol/L (98-107); Estimated GFR-MDRD 48; Glucose 101 mg/dL (83-110); Potassium 4.1 mmol/L (3.5-5.1); Sodium 144 mmol/L (136-145)
--- NOTE | 2020-02-17 16:57 | EKG ---
Test Reason : PREOP Blood Pressure : / mmHG Vent. Rate : 058 BPM Atrial Rate : 058 BPM P-R Int : 164 ms QRS Dur : 106 ms QT Int : 438 ms P-R-T Axes : 079 000 -49 degrees QTc Int : 429 ms Sinus bradycardia Septal infarct (cited on or before 06-OCT-2019) Nonspecific ST-T changes Abnormal ECG When compared with ECG of 06-OCT-2019 13:12, Non-specific change in ST segment in Anterior leads Nonspecific T wave abnormality now evident in Anterolateral leads Confirmed by DR. Justina MCDUFFIE ([id number]) on 02/17/2020 4:56:40 PM Referred By: PK Confirmed By:DR. Justina MCDUFFIE
[2020-02-17 19:11] LABS: SARS-CoV-2 MS2 Positive; SARS-CoV-2 N Gene Negative; SARS-CoV-2 S Gene Negative; SARS-CoV-2 by NAA Not Detected (NotDetected); SARS-CoV-2 orf1ab Negative
== END 2020-02-17 06:31 | disposition home or self-care (01) ==
LOC: LABBT 06:30
PROVIDERS: ATTEND Orthopaedic Surgery
DX: Z01.818 Encounter for other preprocedural examination (principal); M75.121 Complete rotator cuff tear or rupture of right shoulder, not specified as traumatic; Z20.828 Contact with and (suspected) exposure to other viral communicable diseases
CPT/HCPCS: 80048; 85025; 93005; U0003; 87635; 93010

== ENCOUNTER 2020-02-17 08:00 | Inpatient (IN) | payer MEDICARE ==
[2020-02-20] MEDS ORDERED: Fentanyl 100 MCG/2 ML VIAL ONE ×2 (06:15→06:47)
[2020-02-20] MEDS ORDERED: Sodium Chloride 0.9% 100 ML ONE (06:22)
[2020-02-20] MEDS ORDERED: Tranexamic Acid 1,000 MG/10 ML VIAL ONE (06:22)
[2020-02-20] MEDS ORDERED: Vancomycin 1.5 GRAM/300 ML BAG ONE (06:22)
[2020-02-20] MEDS ORDERED: Midazolam HCl 2 mg/2 ml Vial ONE (06:47)
[2020-02-20] MEDS ORDERED: Fentanyl 100 MCG/2 ML VIAL SLOW IVP PRN (07:38)
[2020-02-20] MEDS ORDERED: Clindamycin/D5W 900 mg/50 ml Premix Bag ONE (07:44)
[2020-02-20] MEDS ORDERED: Levofloxacin 500 mg/D5W 100 ml Premix Bag ONE (07:44)
[2020-02-20] MEDS ORDERED: Promethazine HCl 25 MG/ML VIAL IM PRN (07:45)
[2020-02-20] MEDS ORDERED: Zolpidem Tartrate 5 MG TAB PO PRN ×2 (07:45→12:35)
[2020-02-20] MEDS ORDERED: traMADol HCl 50 MG TAB PO PRN ×4 (07:45→12:35)
[2020-02-20] MEDS ORDERED: Ondansetron PF 4 MG/2 ML Vial IVP PRN ×2 (07:45→12:35)
[2020-02-20] MEDS ORDERED: HYDROcodone/Acetaminophen 10/325 mg Tablet PO PRN ×4 (07:45→12:35)
[2020-02-20] MEDS ORDERED: Ropivacaine 0.2% 550 ML 550 ML NERVE BLCK SCH (07:45)
[2020-02-20] MEDS ORDERED: Ropivacaine 0.2% HCl/PF (40 MG/20 ML VIAL) ONE (10:58)
[2020-02-20] MEDS ORDERED: PROPOFOL 200 MG/20 ML VIAL ONE (10:58)
[2020-02-20] MEDS ORDERED: Glycopyrrolate 0.2 MG/ML 5 ML SYRINGE ONE (10:58)
[2020-02-20] MEDS ORDERED: Ondansetron PF 4 MG/2 ML Vial ONE (10:58)
[2020-02-20] MEDS ORDERED: Rocuronium Bromide 10 MG/ML (10ML VIAL) ONE (10:58)
[2020-02-20] MEDS ORDERED: ePHEDrine/0.9% NaCl/PF SYRINGE 50 mg/10 ml ONE (10:58)
[2020-02-20] MEDS ORDERED: Ropivacaine 0.5% HCl/PF (150 MG/30 ML VIAL) ONE (10:58)
[2020-02-20] MEDS ORDERED: Dexamethasone 20 MG/5 ML VIAL ONE (10:58)
[2020-02-20] MEDS ORDERED: Ketorolac Tromethamine 30 MG/ML VIAL ONE (10:58)
[2020-02-20] MEDS ORDERED: Ketorolac Tromethamine 30 MG/ML VIAL IVP PRN (12:35)
[2020-02-20] MEDS ORDERED: Acetaminophen 325 MG TAB PO PRN (12:35)
[2020-02-20] MEDS ORDERED: Vancomycin HCl 1.5 GM in Sodium Chloride 0.9% 250 ML 300 ML IVPB SCH (12:35)
[2020-02-20] MEDS ORDERED: diphenhydrAMINE 50 MG CAP PO PRN (12:35)
[2020-02-20] MEDS ORDERED: Methocarbamol 500 MG TAB PO PRN (12:35)
[2020-02-20] MEDS ORDERED: Bisacodyl 10 MG SUPP PR PRN (12:35)
[2020-02-20] MEDS ORDERED: Ondansetron ODT 4 MG TAB PO PRN (12:35)
[2020-02-20] MEDS ORDERED: Milk Of Magnesia 30 ML UDCUP PO PRN (12:35)
[2020-02-20] MEDS ORDERED: Methocarbamol 1 GM/10 ML VIAL SLOW IVP PRN (12:35)
[2020-02-20] MEDS: Dextrose 5 %-0.45 % NaCl 1,000 ML IV SCH ×2 (13:37→20:44)
--- NOTE | 2020-02-20 13:57 | OP ---
DATE OF PROCEDURE: 02/20/2020 PREOPERATIVE DIAGNOSIS: Right full-thickness irreparable rotator cuff tear, also biceps tendinopathy. PROCEDURES PERFORMED: 1. Right reverse shoulder arthroplasty. 2. Right biceps tenodesis. FURNITURE FINISHER: Missael Quinonez. ANESTHESIOLOGIST: Gisel Gavin MD ANESTHESIA: The patient received a general endotracheal intubation with an interscalene block. ESTIMATED BLOOD LOSS: Less than 200 mL. TOURNIQUET TIME: None. ANTIBIOTICS: Clindamycin 900, Levaquin 500 mg, vancomycin 1 g. The patient received TXA 1 g. IMPLANTS: Tornier 25 mm standard baseplate with 25 mm post, 36 mm standard sphere, 1A Flex stem, and posterior high offset tray and a 6 +C poly/ COMPLICATIONS: None. HISTORY OF PRESENT ILLNESS: Ms. Franco is a pleasant 79-year-old female with right shoulder pain, pain with overhead activities. The patient failed conservative measures, injections, and desired to have relief from right shoulder pain. I discussed with her given the size of her cuff tear, I did not feel it is repairable and I felt that a reverse would be the most optimal for pain control and function. I discussed risks and benefits of surgery to include pain, scar, bleeding, infection, damage to vital structures, decreased range of motion and strength, continued pain despite surgical intervention, need for further surgeries, loss of life or limb. The patient understood the risks and benefits and elected to proceed. DESCRIPTION OF PROCEDURE: Time-out was performed designating the patient's right upper extremity as the operative site based on site, consents, and marking. Procedure: After time-out, the patient had a deltopectoral incision made dissected to interval, found vein laterally, took down a portion of the pec. Placed a Kobel to expose the patient's biceps, came down into the biceps interval, peeled the subscapularis off as well as the capsule, cut the biceps, dislocated, brought the head into position. There was no attachment of all of the supraspinatus and infraspinatus, was retracted to the joint line. We made our A cut, removed the stem, removed the ball, made a secondary cut to get a little bit more bone. We then started with our center reamer and started broaching, broached up to a size 1A, impacted into place. We placed our manhole cover and moved to the glenoid, we did 360-degree release, exposed the entirety of the glenoid. We placed our guidepin with a 10-degree tilt. We felt that we were little inferior, and moved it superiorly. With superior tilt, we placed our center drill, reamed, drilled our center drill and then drilled for 40 mm screw, placing the screw, we found a false cavity and I could not recreate that position. Therefore, I elected to convert to a post. We drilled for the post. We placed the post into position and felt like it sat down well in the bone. We put anterior and posterior nonlocking screws to compress the plate to the bone. We then placed superior and inferior locking screws for a total of four screws and the plate was nice and well fixed. We placed a 36 mm sphere into the base plate, which was firmly fixed. We moved back to our stem. We trialed with 1A high offset 60, relaxed, reduced well, good overall range of motion. No signs of impingement. I liked overall position. We then washed. We removed the implants, placed our #5 Ethibond, drilled through. Using a drill hole, passed through the bone, passed the stem around that, impacted into position with two drill holes. We then reduced the shoulder. We repaired the subscapularis with #5 Ethibond. We took the biceps, passed it through the bony bridge in the groove that was remaining. We tenodesed it with a 2 Vicryl and sewed it also into the remnant of the subscap, cut stitches, washed, closed with 0, 2-0, and jalen. The patient will be admitted overnight. We will follow her inhouse and see how she does clinically. The patient will begin elbow, wrist, and hand motion, will follow up with me in 2 weeks upon discharge. My recovery assistant helped me with the positioning, exposure, retraction of vital structures, osteotomy of the humeral head, reaming, placement of glenosphere baseplate, glenosphere stem, closure of the subscapularis, biceps tenodesis, closure of wounds, and transfer to the table. Job ID: [id number] MTDD
[2020-02-20] MEDS: Clindamycin/D5W 900 MG in Premix Bag 1 BAG IVPB SCH ×2 (14:33→22:14)
[2020-02-20 15:07] VITALS: BMI 27.8
[2020-02-20] MEDS: hydrALAZINE 20 MG/ML VIAL SLOW IVP PRN (17:26)
[2020-02-20] MEDS ORDERED: Vancomycin 1.5 GRAM/300 ML BAG 1.5 GM in Premix Bag 1 BAG IVPB SCH (18:00)
[2020-02-20 18:06] LABS: #Lymphocytes 0.7 thou/uL (1.20-3.40); #Monocytes 0.1 thou/uL (0.11-0.59); #Neutrophils 8.4 thou/uL (1.40-6.50); %Eosinophils 0.2 % (0.0-10.0); %Lymphocytes 7.8 % (21.0-51.0); %Monocytes 1.4 % (0.0-10.0); %Neutrophils 90.7 % (42.0-75.0); Hemoglobin 9.4 g/dL (12.0-16.0); Mean Corpuscular HGB CONC 31.7 g/dL (32.0-36.0); Mean Corpuscular Hemoglobin 31.7 pg (27.0-31.0); Platelet Count 139 thou/uL (130-400); RBC Distribution Width 12.5 % (11.5-14.5); Red Blood Cell (RBC) Count 2.97 mill/uL (4.20-5.40); White Blood Cell (WBC) Count 9.3 thou/uL (4.8-10.8)
--- NOTE | 2020-02-20 18:17 | PDOC.HHP ---
Hospitalist HPI - History of Present Illness Consult for medical management History of Present Illness: CONSULTATION NOTE CONSULT REQUEST BY: Antelmo Gomez CONSULTATION FOR: Medical management HPI: Ms. Franco is a 79-year-old female with a past medical history of hypertension, hyperlipidemia, hypothyroidism, coronary artery disease status post stents who underwent a right total shoulder repair with Dr. Gomez on 02/20/2020. Patient tolerated procedure well with no complications noted in the operative note. Hospitalist service consulted for medical management of patient 's chronic conditions. Patient seen and examined postoperatively. She denies chest pain, shortness of breath, abdominal pain. Denies any new weakness or numbness. Denies fever chills night sweats. No current complaints. Hospitalist ROS - Review of Systems Constitutional: denies: fever, chills, sweats, weakness, malaise, other Eyes: denies: pain, vision change, conjunctivae inflammation, eyelid inflamm ation, redness, other ENT: denies: ear pain, ear discharge, nose pain, nose discharge, nose congestion, mouth pain, mouth swelling, throat pain, throat swelling, other Respiratory: denies: cough, dry, shortness of breath, hemoptysis, SOB with excertion, pleuritic pain, sputum, wheezing, other Cardiovascular: denies: chest pain, palpitations, orthopnea, paroxysmal noc. dyspnea, edema, light headedness, other Gastrointestinal: denies: nausea, vomiting, abdominal pain, diarrhea, constipation, melena, hematochezia, other Genitourinary: denies: dysuria, frequency, incontinence, hematuria, retention, other Musculoskeletal: denies: neck pain, shoulder pain, arm pain, back pain, hand pain, leg pain, foot pain, other Skin: denies: rash, lesions, rusty, bruising, other Neurological: denies: weakness, numbness, incoordination, change in speech, confusion, seizures, other - Medication Medications: Home medications include Pravastatin Omeprazole Nitro glycerin Aspirin Levothyroxine Losartan/hydrochlorothiazide Allergy to penicillins Hospitalist History - Past Medical History Other Medical History: Past medical history of Hypertension Hyperlipidemia Hypothyroidism Coronary artery disease status post 3 stents - Past Surgical History Other Surgical History: Past surgical history includes Right total shoulder repair Cardiac stents Hysterectomy - Family History Other Family History: Family history of coronary artery disease. - Social History Smoking Status: Former smoker (Quit over 40 years ago) Alcohol: reports: None Drugs: reports: none Living Situation: With Family Activity level: independent ambulation - Exam General Appearance: NAD, awake alert Eye: PERRL, anicteric sclera ENT: normocephalic atraumatic, no oropharyngeal lesions, moist mucosa Neck: supple, symmetric, no JVD, no thyromegaly, no lymphadenopathy, no carotid bruit Heart: RRR, no murmur, no gallops, no rubs, normal peripheral pulses Respiratory: CTAB, no wheezes, no rales, no ronchi, normal chest expansion, no tachypnea, normal percussion Gastrointestinal: soft, non-tender, non-distended, normal bowel sounds, no palpable masses, no hepatomegaly, no splenomegaly, no bruit Extremities: no cyanosis, no clubbing, no edema Extremities - other findings: Right dressing clean dry intact Skin: normal turgor, no lesions, no rashes Neurological: normal sensation to touch, no weakness, no focal deficits Musculoskeletal: normal tone, normal strength, no muscle wasting Psychiatric: normal affect, normal behavior, A&O x 3 Hospitalist Results - Labs Result Diagrams: 02/22/20 05:25 02/22/20 05:25 Lab results: WBC 9.3 thou/uL (4.8-10.8) 02/20/20 17:45 Hgb 9.4 g/dL (12.0-16.0) L 02/20/20 17:45 Hct 29.8 % (36.0-47.0) L 02/20/20 17:45 MCV 100.0 fL (78.0-98.0) H 02/20/20 17:45 Plt Count 139 thou/uL (130-400) 02/20/20 17:45 Neutrophils % 90.7 % (42.0-75.0) H 02/20/20 17:45 Hospitalist H&P A/P - Plan Plan: 79-year-old female with past medical history of hypertension, hyperlipidemia, hypothyroidism, coronary artery disease status post 3 stents underwent a right total shoulder repair with Dr. Gomez on 02/20/2020 with no complications. Hospitalist service consulted for medical management of patient's chronic conditions. Status post right total shoulder Encouraged I-S Patient reports her pain is well controlled Endorses passing flatus Postoperative course per surgical team Hypertension History of hypertension on home losartan/hydrochlorothiazide. IV hydralazine as needed Continue home antihypertensive medications in a.m. Hypokalemia -K+ 2.9 -replete and monitor Hypocalcemia -Calcium 5.9. Will check LFTs to verify corrected calcium -Calcium carbonate PO -Will check PTH, Vitamin D, Mg Hypothyroidism Continue home levothyroxine Hyperlipidemia Continue home statin Coronary artery disease Aspirin on hold perioperatively, may continue at discretion of surgical team DVT prophylaxisper surgical team Case discussed with Dr. Ruiz
[2020-02-20 18:22] LABS: Anion Gap 19 mmol/L (10-20); BUN (Urea Nitrogen) 15 mg/dL (9.8-20.1); Calc. Creatinine Clearance 83 mL/min (70-130); Carbon Dioxide 15 mmol/L (23-31); Chloride 96 mmol/L (98-107); Glucose 117 mg/dL (83-110); Sodium 127 mmol/L (136-145)
[2020-02-20 18:25] LABS: Calcium 5.9 mg/dL (7.8-10.44); Potassium 2.9 mmol/L (3.5-5.1)
[2020-02-20] MEDS ORDERED: Calcium Carbonate 500 MG ChewTAB PO SCH (18:45)
[2020-02-20] MEDS ORDERED: Potassium Chloride 20 MEQ TAB PO SCH (18:45)
[2020-02-20 18:50] LABS: ALT (SGPT) Less than 7 U/L (8-55); AST (SGOT) 8 U/L (5-34); Albumin 2.1 g/dL (3.4-4.8); Alkaline Phosphatase 31 U/L (40-110); Bilirubin, Direct 0.1 mg/dL (0.1-0.3); Bilirubin, Total 0.2 mg/dL (0.2-1.2); Protein, Total 4.1 g/dL (6.0-8.3)
[2020-02-20] MEDS ORDERED: Potassium Phosphate 30 MMOL in Sodium Chloride 0.9% 250 ML 250 ML IVPB SCH (19:00)
[2020-02-20] MEDS: Simvastatin 10 MG TAB PO SCH (20:35)
[2020-02-20] MEDS: Famotidine 20 MG TAB PO SCH (20:35)
[2020-02-21] MEDS: Levothyroxine Sodium 88 MCG TAB PO SCH (05:26)
[2020-02-21 05:59] LABS: #Lymphocytes 1.6 thou/uL (1.20-3.40); #Monocytes 0.7 thou/uL (0.11-0.59); #Neutrophils 8.3 thou/uL (1.40-6.50); %Basophils 0.2 % (0.0-1.0); %Eosinophils 0.1 % (0.0-10.0); %Lymphocytes 14.9 % (21.0-51.0); %Monocytes 6.3 % (0.0-10.0); %Neutrophils 78.6 % (42.0-75.0); Hemoglobin 10.1 g/dL (12.0-16.0); Mean Corpuscular HGB CONC 32.9 g/dL (32.0-36.0); Mean Corpuscular Hemoglobin 31.9 pg (27.0-31.0); Mean Platelet Volume 7.9 fL (7.4-10.4); Platelet Count 170 thou/uL (130-400); RBC Distribution Width 12.7 % (11.5-14.5); Red Blood Cell (RBC) Count 3.16 mill/uL (4.20-5.40); White Blood Cell (WBC) Count 10.5 thou/uL (4.8-10.8)
[2020-02-21 06:44] LABS: Anion Gap 14 mmol/L (10-20); BUN (Urea Nitrogen) 26 mg/dL (9.8-20.1); Calc. Creatinine Clearance 44 mL/min (70-130); Calcium 8.3 mg/dL (7.8-10.44); Carbon Dioxide 19 mmol/L (23-31); Chloride 109 mmol/L (98-107); Glucose 123 mg/dL (83-110); Potassium 4.7 mmol/L (3.5-5.1); Sodium 137 mmol/L (136-145)
[2020-02-21] MEDS: Famotidine 20 MG TAB PO SCH ×2 (08:17→20:45)
[2020-02-21] MEDS: Losartan/Hydrochlorothiazide 100 mg/25 mg Tablet PO SCH (08:17)
[2020-02-21] MEDS ORDERED: FLU VACC QS2020-21(65YR UP)/PF 240 MCG/0.7 ML SYRINGE IM ONE (09:00)
[2020-02-21] MEDS ORDERED: Benzonatate 100 MG CAP PO PRN (09:55)
--- NOTE | 2020-02-21 10:36 | PDOC.HOSPP ---
- Subjective Encounter Date: 02/21/20 Encounter Time: 09:25 Subjective: Patient is seen this morning for medical management consultation follow-up. She feels that she is doing well and states that surgery feels she will be going home tomorrow. OT is currently in the room at this time working with the patient. No need to expression patient. Chart and medications reviewed at this time. - Objective Vital Signs & Weight: Vital Signs (12 hours) Temp Pulse Pulse Resp BP Pulse Ox Pulse Ox 02/21/20 08:50 87 98 02/21/20 08:20 97 02/21/20 07:15 98 F 80 16 156/79 H 97 02/21/20 04:11 97.5 F L 60 20 133/57 L 97 02/20/20 23:56 97.8 F 68 20 147/79 H 97 Weight Weight 178 lb I&O: 02/20/20 02/21/20 02/22/20 06:59 06:59 06:59 Intake Total 1420 Output Total 725 Balance 695 Result Diagrams: 02/21/20 05:46 02/21/20 05:46 Hospitalist ROS - Review of Systems Respiratory: reports: cough - Medication Medications: Active Medications Generic Name Dose Route Start Last Admin Trade Name Freq PRN Reason Stop Dose Admin Famotidine 20 mg 02/20/20 21:00 02/21/20 08:17 Famotidine 20 Mg Tab PO 20 mg BID AROLDO Administration HCTZ/Losartan Potassium 1 tab 02/21/20 09:00 02/21/20 08:17 Losartan/Hydrochlorothiazide 100 Mg/25 Mg Tablet PO 1 tab DAILY AROLDO Administration Hydralazine HCl 10 mg 02/20/20 16:39 02/20/20 17:26 Hydralazine 20 Mg/Ml Vial SLOW IVP 10 mg Q4H PRN Administration SBP Greater Than 170 Dextrose/Sodium Chloride 1,000 mls @ 65 mls/hr 02/20/20 12:35 02/20/20 20:44 D5 1/2 Ns IV 1,000 mls .[id number] AROLDO Administration Levothyroxine Sodium 88 mcg 02/21/20 06:00 02/21/20 05:26 Levothyroxine Sodium 88 Mcg Tab PO 88 mcg 0600 AROLDO Administration Simvastatin 10 mg 02/20/20 21:00 12/03/20 20:35 Simvastatin 10 Mg Tab PO 10 mg HS AROLDO Administration - Exam General Appearance: NAD, awake alert Heart: RRR, no murmur, no gallops, no rubs, normal peripheral pulses Respiratory: CTAB, no wheezes, no rales, no ronchi, normal chest expansion Gastrointestinal: soft, non-tender, non-distended, normal bowel sounds, no palpable masses Extremities - other findings: RUE in sling, radial pulse intact Psychiatric: normal affect, normal behavior Hosp A/P - Plan Status post right total shoulder Encouraged IS Patient reports her pain is well controlled Endorses passing flatus Postoperative course per surgical team Hypertension IV hydralazine as needed Continue home antihypertensive medications Hypokalemia -K+ 2.9 upon admission, today at 4.7 -continue to monitor Hypocalcemia -Calcium 5.9 on admission, currently at 8.3 Hypothyroidism Continue home levothyroxine Hyperlipidemia Continue home statin Coronary artery disease Aspirin on hold perioperatively, may continue at discretion of surgical team
--- NOTE | 2020-02-21 17:19 | RAD ---
Exam: Chest one view HISTORY:Wheezing. Shortness of breath. Comparison: None FINDINGS: Cardiac silhouette:Enlarged area there is a coronary stent. Aorta: Unremarkable Pulmonary vessels: Normal Costophrenic angles: Left greater than right pleural effusion. There appears to be elevation the righ t hemidiaphragm. LUNGS: Bibasilar consolidation. Pneumothorax: None Osseous abnormalities: Right humeral arthroplasty. IMPRESSION: 1. Diminished lung volumes. Bibasilar consolidation due to atelectasis, aspiration or pneumonia. Cont inued surveillance is recommended. 2. Elevation right hemidiaphragm. Correlate for atelectasis.
[2020-02-21] MEDS: hydrALAZINE 20 MG/ML VIAL SLOW IVP PRN (17:28)
[2020-02-21] MEDS ORDERED: Labetalol HCl 100 MG/20 ML VIAL SLOW IVP PRN (18:45)
[2020-02-21] MEDS: Simvastatin 10 MG TAB PO SCH (20:45)
[2020-02-22] MEDS: Levothyroxine Sodium 88 MCG TAB PO SCH (05:39)
[2020-02-22 05:57] LABS: #Eosinphils 0.1 thou/uL (0.0-0.7); #Lymphocytes 1.4 thou/uL (1.20-3.40); #Monocytes 0.7 thou/uL (0.11-0.59); #Neutrophils 7.7 thou/uL (1.40-6.50); %Basophils 0.2 % (0.0-1.0); %Eosinophils 0.7 % (0.0-10.0); %Lymphocytes 13.7 % (21.0-51.0); %Monocytes 7.4 % (0.0-10.0); Hemoglobin 11.1 g/dL (12.0-16.0); Mean Corpuscular HGB CONC 32.8 g/dL (32.0-36.0); Mean Corpuscular Hemoglobin 31.9 pg (27.0-31.0); Mean Corpuscular Volume 97.3 fL (78.0-98.0); Mean Platelet Volume 8.5 fL (7.4-10.4); Platelet Count 167 thou/uL (130-400); RBC Distribution Width 13.1 % (11.5-14.5); Red Blood Cell (RBC) Count 3.49 mill/uL (4.20-5.40); White Blood Cell (WBC) Count 9.9 thou/uL (4.8-10.8)
[2020-02-22 06:17] LABS: Anion Gap 15 mmol/L (10-20); BUN (Urea Nitrogen) 21 mg/dL (9.8-20.1); Calc. Creatinine Clearance 51 mL/min (70-130); Calcium 8.8 mg/dL (7.8-10.44); Carbon Dioxide 19 mmol/L (23-31); Chloride 105 mmol/L (98-107); Glucose 116 mg/dL (83-110); Potassium 4.3 mmol/L (3.5-5.1); Sodium 135 mmol/L (136-145)
[2020-02-22] MEDS: Famotidine 20 MG TAB PO SCH (08:51)
[2020-02-22] MEDS: Losartan/Hydrochlorothiazide 100 mg/25 mg Tablet PO SCH (08:51)
[2020-02-22] MEDS ORDERED: Amlodipine 5 MG TAB PO SCH (09:00)
--- NOTE | 2020-02-22 11:05 | PDOC.EVN ---
Event Note - Event Note Event Note: Patient showed improvement of blood pressure with addition of Norvasc. Prescription sent to her pharmacy, encouraged to follow-up with her PCP this next week for additional blood pressure management. Okay to discharge from medical standpoint. Patient seen and examined on day of discharge.
[2020-02-22 12:47] VITALS: BP 153/75; TEMP 98
--- NOTE | 2020-02-24 07:48 | DIS ---
DATE OF ADMISSION: 02/20/2020 DATE OF DISCHARGE: 02/22/2020 HISTORY OF PRESENT ILLNESS: Ms. Franco is a 79-year-old female status post reverse shoulder arthroplasty. The patient had elevated blood pressure during hospital stay, was medically managed by the [facility]. The patient was ambulating, eating, utilizing her right hand, block has been removed. The patient's blood pressure was improved. She restarted her home medications. The patient will be discharged home with followup in 2 weeks. She needs to follow up with her PCP to discuss her blood pressure medication management. Discharged home with tramadol as needed for severe pain. Otherwise, utilize Tylenol. The patient will restart her aspirin and restart all of her home medications. She needs to follow up with me in 2 weeks. Remain in her sling. Perform elbow, wrist, and hand motion. May remove her dressing in 2 to 3 days. Keep covered. Job ID: [id number]
== END 2020-02-22 14:48 | disposition home or self-care (01) | DRG 483 ==
LOC: SURG A 02-20 06:04
PROVIDERS: ADMIT Orthopaedic Surgery; ATTEND Orthopaedic Surgery
PROC: 0RRJ00Z Replacement of Right Shoulder Joint with Reverse Ball and Socket Synthetic Substitute, Open Approach (ICD-10-PCS; principal; 2020-02-20)
DX: M75.121 Complete rotator cuff tear or rupture of right shoulder, not specified as traumatic (principal); Z88.0 Allergy status to penicillin; I10 Essential (primary) hypertension; E03.9 Hypothyroidism, unspecified; E87.6 Hypokalemia; E83.51 Hypocalcemia; E78.5 Hyperlipidemia, unspecified; I25.10 Atherosclerotic heart disease of native coronary artery without angina pectoris; Z95.5 Presence of coronary angioplasty implant and graft; Z79.82 Long term (current) use of aspirin; Z79.890 Hormone replacement therapy; Z79.899 Other long term (current) drug therapy; Z90.710 Acquired absence of both cervix and uterus; Z87.891 Personal history of nicotine dependence
CPT/HCPCS: 36415; 71045; 80048; 80076; 82306; 83735; 83970; 85025; 86850; 86900; 86901; 87635; 93005; A4306; C1713; J0360; J0690; J1100; J1885; J1956; J2250; J2405; J2704; J2795; J3010; J3370; J3490; J7050; U0003

== ENCOUNTER 2020-11-10 14:28 | Outpatient (CLI) | payer MEDICARE ==
[2020-11-10 17:00] LABS: #Eosinphils 0.4 10x3/uL (0.0-0.5); #Monocytes 0.7 10x3/uL (0.0-1.1); #Neutrophils 3.1 10x3/uL (1.5-8.4); %Basophils 0.4 % (0.0-2.0); %Eosinophils 6.1 % (0.0-6.0); %Lymphocytes 38.1 % (18.0-47.0); %Monocytes 10.4 % (0.0-10.0); %Neutrophils 44.9 % (40.0-75.0); Hemoglobin 11.3 g/dL (12.0-15.5); Mean Corpuscular HGB CONC 32.2 g/dL (32.0-36.0); Mean Corpuscular Hemoglobin 30.1 pg (27.0-33.0); Mean Corpuscular Volume 93.6 fl (81.6-98.3); Mean Platelet Volume 10.5 fl (7.4-10.4); Platelet Count 213 10x3/uL (150-450); RBC Distribution Width 12.8 % (11.5-14.5); Red Blood Cell (RBC) Count 3.75 10x6/uL (3.90-5.03)
[2020-11-10 17:33] LABS: Anion Gap 16 mmol/L (10-20); BUN (Urea Nitrogen) 18 mg/dL (9.8-20.1); Calc. Creatinine Clearance 0 mL/min (70-130); Calcium 9.6 mg/dL (7.8-10.44); Carbon Dioxide 22 mmol/L (23-31); Chloride 107 mmol/L (98-107); Glucose 90 mg/dL (83-110); Potassium 3.9 mmol/L (3.5-5.1); Sodium 141 mmol/L (136-145)
[2020-11-10 19:28] LABS: Bilirubin Neg (Negative); Blood, Urine Negative (Negative); Clarity Clear (Clear); Glucose, Urine (Dipstick) Normal (Negative); Ketone, Urine Negative (Negative); Leukocyte Negative (Negative); Nitrite Negative (Negative); Protein, Urine (Dipstick) Negative (Neg-Trace); Urobilinogen Normal mg/dL (Less than 2)
[2020-11-10 19:40] LABS: RBC/HPF None Seen HPF (0-3)
[2020-11-11 07:49] LABS: SARS-CoV-2 PCR by NAA Not Detected (NotDetected)
== END 2020-11-10 14:29 | disposition home or self-care (01) ==
LOC: LABBT 14:28
PROVIDERS: ATTEND Orthopaedic Surgery Hand Surgery
DX: Z01.818 Encounter for other preprocedural examination (principal); M19.031 Primary osteoarthritis, right wrist; Z20.822 Contact with and (suspected) exposure to COVID-19
CPT/HCPCS: 80048; 81001; 85025; 93005; U0003; U0005; 93010

== ENCOUNTER 2020-11-13 05:42 | Day surgery (SDC) | payer MEDICARE ==
[2020-11-12 12:28] VITALS: BMI 27.3
[2020-11-13] MEDS ORDERED: Bupivacaine PF 0.5% 30 ML VIAL ONE (06:10)
[2020-11-13] MEDS ORDERED: Bacitracin Zinc Ointment 30 gm TUBE ONE (06:11)
[2020-11-13] MEDS ORDERED: Neomycin-Polymyxin 1 ML AMP ONE (06:11)
[2020-11-13] MEDS ORDERED: Fentanyl 100 MCG/2 ML VIAL ONE ×2 (06:14→07:01)
[2020-11-13] MEDS ORDERED: Midazolam HCl 2 mg/2 ml Vial ONE (07:01)
[2020-11-13] MEDS ORDERED: Levofloxacin 500 mg/D5W 100 ml Premix Bag ONE (07:11)
[2020-11-13] MEDS ORDERED: Clindamycin/D5W 900 mg/50 ml Premix Bag ONE (07:11)
[2020-11-13] MEDS ORDERED: PROPOFOL 200 MG/20 ML VIAL ONE (07:44)
[2020-11-13] MEDS ORDERED: Ondansetron PF 4 MG/2 ML Vial ONE (07:44)
[2020-11-13] MEDS ORDERED: ePHEDrine 50 MG/ML VIAL ONE (07:44)
[2020-11-13] MEDS ORDERED: Ropivacaine 0.5% HCl/PF (150 MG/30 ML VIAL) ONE (07:44)
[2020-11-13] MEDS ORDERED: Dexamethasone 20 MG/5 ML VIAL ONE (07:44)
[2020-11-13] MEDS ORDERED: Ropivacaine 2% HCl/PF (20 MG/10 ML VIAL) ONE (07:44)
[2020-11-13] MEDS ORDERED: Lidocaine 1% PF 5 ML VIAL ONE (07:44)
[2020-11-13] MEDS ORDERED: Promethazine HCl 25 MG/ML VIAL IM PRN (08:30)
[2020-11-13] MEDS ORDERED: traMADol HCl 50 MG TAB PO PRN ×2 (08:30)
[2020-11-13] MEDS ORDERED: HYDROcodone/Acetaminophen 5/325 mg Tablet PO PRN ×2 (08:30)
[2020-11-13] MEDS ORDERED: Ondansetron PF 4 MG/2 ML Vial IVP PRN (08:30)
[2020-11-13] MEDS ORDERED: Ropivacaine 0.2% 550 ML 550 ML NERVE BLCK SCH (08:30)
[2020-11-13] MEDS ORDERED: Zolpidem Tartrate 5 MG TAB PO PRN (08:30)
== END 2020-11-13 15:32 | disposition home or self-care (01) ==
LOC: SDC 05:42
PROVIDERS: ATTEND Orthopaedic Surgery Hand Surgery
PROC: 0RGN0KZ Fusion of Right Wrist Joint with Nonautologous Tissue Substitute, Open Approach (ICD-10-PCS; principal; 2020-11-13)
DX: M19.131 Post-traumatic osteoarthritis, right wrist (principal); I10 Essential (primary) hypertension; Z85.3 Personal history of malignant neoplasm of breast; Z79.82 Long term (current) use of aspirin; Z79.899 Other long term (current) drug therapy; Z88.0 Allergy status to penicillin; Z95.5 Presence of coronary angioplasty implant and graft
CPT/HCPCS: 25999; 73100; 76000; A4306; C1713; J1100; J1956; J2250; J2405; J2704; J2795; J3010; J3490; S0020

== ENCOUNTER 2021-11-18 13:27 | Inpatient (IN) | payer MEDICARE ==
[2021-11-18 14:24] LABS: #Eosinphils 0.1 thou/uL (0.0-0.7); #Lymphocytes 2.3 thou/uL (1.20-3.40); #Monocytes 0.4 thou/uL (0.11-0.59); #Neutrophils 2.5 thou/uL (1.40-6.50); %Basophils 0.6 % (0.0-1.0); %Eosinophils 2.8 % (0.0-10.0); %Lymphocytes 42.2 % (21.0-51.0); %Neutrophils 46.4 % (42.0-75.0); Hemoglobin 12.2 g/dL (12.0-16.0); Mean Corpuscular HGB CONC 33.4 g/dL (32.0-36.0); Mean Corpuscular Hemoglobin 34.6 pg (27.0-31.0); Mean Platelet Volume 7.8 fL (7.4-10.4); Platelet Count 153 thou/uL (130-400); RBC Distribution Width 12.8 % (11.5-14.5); Red Blood Cell (RBC) Count 3.51 mill/uL (4.20-5.40); White Blood Cell (WBC) Count 5.4 thou/uL (4.8-10.8)
[2021-11-18 14:31] LABS: ALT (SGPT) 7 U/L (8-55); AST (SGOT) 19 U/L (5-34); Albumin 3.6 g/dL (3.4-4.8); Alkaline Phosphatase 45 U/L (40-110); Anion Gap 19 mmol/L (10-20); BUN (Urea Nitrogen) 18 mg/dL (9.8-20.1); Bilirubin, Total 0.8 mg/dL (0.2-1.2); Calc. Creatinine Clearance 0 mL/min (70-130); Calcium 9.4 mg/dL (7.8-10.44); Carbon Dioxide 26 mmol/L (23-31); Chloride 97 mmol/L (98-107); Estimated GFR 25; Globulin 3.1 g/dL (2.4-3.5); Glucose 86 mg/dL (83-110); Protein, Total 6.7 g/dL (5.8-8.1); Sodium 139 mmol/L (136-145)
[2021-11-18 14:40] LABS: Potassium 2.8 mmol/L (3.5-5.1)
[2021-11-18 14:54] LABS: CKMB 3.5 ng/mL (0-6.6)
[2021-11-18] MEDS ORDERED: Cefepime 2 GM VIAL ONE (15:22)
[2021-11-18] MEDS ORDERED: Potassium Chloride 20 MEQ TAB ONE (15:23)
[2021-11-18] MEDS ORDERED: Vancomycin 1 GM/200 ML BAG ONE (15:23)
[2021-11-18 15:30] LABS: Lipase 12 U/L (8-78)
[2021-11-18 15:31] LABS: CK (CPK) 348 U/L (29-168)
[2021-11-18 15:52] LABS: Bacteria/HPF 4+ HPF (None Seen); Bilirubin Negative (Negative); Blood, Urine Negative (Negative); Clarity Turbid (Clear); Glucose, Urine (Dipstick) Normal (Negative); Ketone, Urine Negative (Negative); Leukocyte 500 Leu/uL (Negative); Nitrite Negative (Negative); Protein, Urine (Dipstick) 50 mg/dL (Neg-Trace); RBC/HPF 0-3 HPF (0-3); Specific Gravity, Urine 1.023 (1.002-1.036); Urobilinogen 3 mg/dL (Less than 2); WBC/HPF 21-50 HPF (0-3); pH, Urine 5.5 (5.0-9.0)
[2021-11-18 15:58] LABS: SARS-CoV-2 NAA Rapid Test Not Detected (NotDetected)
[2021-11-18 18:14] LABS: Lactic Acid 2.7 mmol/L (0.5-2.2)
[2021-11-18 18:25] LABS: Troponin I 0.042 ng/mL (< 0.028)
[2021-11-18] MEDS ORDERED: hydrALAZINE 20 MG/ML VIAL SLOW IVP PRN (18:52)
[2021-11-18] MEDS ORDERED: Acetaminophen 325 MG TAB PO PRN (18:52)
[2021-11-18] MEDS ORDERED: Potassium Chloride 20 MEQ TAB PO SCH (19:00)
[2021-11-18 20:03] VITALS: BMI 23.2
[2021-11-18] MEDS: Sodium Chloride 0.9% 1,000 ML IV SCH (20:26)
[2021-11-18] MEDS: cefTRIAXone\\ROCEPHIN 1 GM in Sodium Chloride 0.9% 100 ML IVPB SCH (20:26)
[2021-11-18 20:54] LABS: Troponin I 0.043 ng/mL (< 0.028)
[2021-11-19 03:48] LABS: #Eosinphils 0.1 thou/uL (0.0-0.7); #Lymphocytes 2.2 thou/uL (1.20-3.40); #Monocytes 0.4 thou/uL (0.11-0.59); #Neutrophils 3.1 thou/uL (1.40-6.50); %Basophils 0.8 % (0.0-1.0); %Eosinophils 1.9 % (0.0-10.0); %Lymphocytes 37.9 % (21.0-51.0); %Neutrophils 52.5 % (42.0-75.0); Hemoglobin 11.6 g/dL (12.0-16.0); Mean Corpuscular HGB CONC 34.7 g/dL (32.0-36.0); Mean Corpuscular Hemoglobin 36.3 pg (27.0-31.0); Mean Platelet Volume 7.4 fL (7.4-10.4); Platelet Count 145 thou/uL (130-400); RBC Distribution Width 12.7 % (11.5-14.5); White Blood Cell (WBC) Count 5.9 thou/uL (4.8-10.8)
[2021-11-19 04:22] LABS: Thyroid Stimulating Hormone 43.4552 uIU/mL (0.35-4.94)
[2021-11-19] MEDS ORDERED: Electrolyte Replacement Protocol 1 EACH FS SCH (04:30)
[2021-11-19 04:35] LABS: Critical Call Chemistry 2NO.KJ; Phosphorus 1.8 mg/dL (2.3-4.7)
[2021-11-19 04:48] LABS: Anion Gap 18 mmol/L (10-20); BUN (Urea Nitrogen) 15 mg/dL (9.8-20.1); Calc. Creatinine Clearance 28 mL/min (70-130); Calcium 8.8 mg/dL (7.8-10.44); Carbon Dioxide 24 mmol/L (23-31); Chloride 101 mmol/L (98-107); Estimated GFR 30; Glucose 78 mg/dL (83-110); Magnesium 1.8 mg/dL (1.6-2.6); Potassium 3.6 mmol/L (3.5-5.1); Sodium 139 mmol/L (136-145)
[2021-11-19] MEDS ORDERED: PHOS-NAK 1 PKT PACK PO SCH (05:00)
[2021-11-19] MEDS ORDERED: Magnesium 2 GM/50 ML(in water) 2 GM in Premix Bag 1 BAG IVPB SCH (05:00)
[2021-11-19 05:37] LABS: Free T4 (Free Thyroxine) Less than 0.40 ng/dL (0.70-1.48)
[2021-11-19] MEDS ORDERED: Potassium Phosphate 15 MMOL in Sodium Chloride 0.9% 250 ML 250 ML IVPB SCH (08:00)
[2021-11-19] MEDS: Enoxaparin Sodium 30 MG/0.3 ML SYRINGE SC SCH (08:55)
[2021-11-19] MEDS: PHOS-NAK 1 PKT PACK PO SCH ×2 (08:55→13:00)
[2021-11-19] MEDS: Sodium Chloride 0.9% 1,000 ML IV SCH ×2 (11:09→21:41)
[2021-11-19] MEDS ORDERED: Cyanocobalamin 1000 MCG/ML VIAL IM SCH (12:00)
[2021-11-19] MEDS: cefTRIAXone\\ROCEPHIN 1 GM in Sodium Chloride 0.9% 100 ML IVPB SCH (21:40)
[2021-11-19] MEDS: Senokot S 8.6-50 MG TAB PO SCH (21:46)
[2021-11-19] MEDS: Bisacodyl 10 MG SUPP PR SCH (21:46)
[2021-11-20 05:24] LABS: Anion Gap 15 mmol/L (10-20); BUN (Urea Nitrogen) 14 mg/dL (9.8-20.1); Calc. Creatinine Clearance 33 mL/min (70-130); Calcium 8.1 mg/dL (7.8-10.44); Carbon Dioxide 24 mmol/L (23-31); Chloride 101 mmol/L (98-107); Estimated GFR 37; Glucose 80 mg/dL (83-110); Magnesium 2.1 mg/dL (1.6-2.6); Phosphorus 3.7 mg/dL (2.3-4.7); Potassium 3.3 mmol/L (3.5-5.1); Sodium 137 mmol/L (136-145)
[2021-11-20] MEDS: Levothyroxine Sodium 25 MCG TAB PO SCH (05:28)
[2021-11-20 05:36] LABS: #Basophils 0.1 thou/uL (0.0-0.2); #Eosinphils 0.1 thou/uL (0.0-0.7); #Lymphocytes 1.8 thou/uL (1.20-3.40); #Monocytes 0.4 thou/uL (0.11-0.59); %Basophils 1.2 % (0.0-1.0); %Eosinophils 2.5 % (0.0-10.0); %Lymphocytes 41.2 % (21.0-51.0); %Monocytes 8.2 % (0.0-10.0); %Neutrophils 46.8 % (42.0-75.0); Hemoglobin 10.1 g/dL (12.0-16.0); Mean Corpuscular HGB CONC 33.7 g/dL (32.0-36.0); Mean Corpuscular Hemoglobin 35.3 pg (27.0-31.0); Mean Platelet Volume 7.9 fL (7.4-10.4); Platelet Count 130 thou/uL (130-400); RBC Distribution Width 12.9 % (11.5-14.5); Red Blood Cell (RBC) Count 2.86 mill/uL (4.20-5.40); White Blood Cell (WBC) Count 4.3 thou/uL (4.8-10.8)
[2021-11-20] MEDS ORDERED: Electrolyte Replacement Protocol FS PRN (07:15)
[2021-11-20] MEDS: PHOS-NAK 1 PKT PACK PO SCH ×2 (10:03→21:16)
[2021-11-20] MEDS: Cyanocobalamin (Vitamin B-12) 1,000 MCG TAB PO SCH (10:04)
[2021-11-20] MEDS: Senokot S 8.6-50 MG TAB PO SCH ×2 (10:04→21:15)
[2021-11-20] MEDS: Folic Acid 1 MG TAB PO SCH (10:04)
[2021-11-20] MEDS: Enoxaparin Sodium 30 MG/0.3 ML SYRINGE SC SCH (10:04)
[2021-11-20] MEDS: Multivit, Therapeutic 1 TAB PO SCH (10:04)
[2021-11-20] MEDS ORDERED: Potassium Chloride 20 MEQ TAB PO SCH (12:00)
[2021-11-20] MEDS: Sodium Chloride 0.9% 1,000 ML IV SCH (12:30)
[2021-11-20] MEDS: Bisacodyl 10 MG SUPP PR SCH (21:17)
[2021-11-20] MEDS: cefTRIAXone\\ROCEPHIN 1 GM in Sodium Chloride 0.9% 100 ML IVPB SCH (22:07)
[2021-11-21] MEDS: Sodium Chloride 0.9% 1,000 ML IV SCH ×2 (02:52→15:03)
[2021-11-21 04:37] LABS: #Eosinphils 0.1 thou/uL (0.0-0.7); #Lymphocytes 1.9 thou/uL (1.20-3.40); #Monocytes 0.5 thou/uL (0.11-0.59); #Neutrophils 2.3 thou/uL (1.40-6.50); %Basophils 0.4 % (0.0-1.0); %Eosinophils 2.3 % (0.0-10.0); %Lymphocytes 40.2 % (21.0-51.0); %Monocytes 9.7 % (0.0-10.0); %Neutrophils 47.4 % (42.0-75.0); Hemoglobin 10.9 g/dL (12.0-16.0); Mean Corpuscular HGB CONC 35.9 g/dL (32.0-36.0); Mean Corpuscular Hemoglobin 37.9 pg (27.0-31.0); Mean Platelet Volume 7.5 fL (7.4-10.4); Platelet Count 135 thou/uL (130-400); RBC Distribution Width 12.9 % (11.5-14.5); Red Blood Cell (RBC) Count 2.88 mill/uL (4.20-5.40); White Blood Cell (WBC) Count 4.8 thou/uL (4.8-10.8)
[2021-11-21 05:09] LABS: ALT (SGPT) 9 U/L (8-55); AST (SGOT) 17 U/L (5-34); Albumin 2.8 g/dL (3.4-4.8); Alkaline Phosphatase 36 U/L (40-110); Anion Gap 16 mmol/L (10-20); BUN (Urea Nitrogen) 13 mg/dL (9.8-20.1); Bilirubin, Total 0.6 mg/dL (0.2-1.2); Calc. Creatinine Clearance 38 mL/min (70-130); Carbon Dioxide 21 mmol/L (23-31); Chloride 104 mmol/L (98-107); Estimated GFR 44; Globulin 2.7 g/dL (2.4-3.5); Glucose 73 mg/dL (83-110); Potassium 3.6 mmol/L (3.5-5.1); Protein, Total 5.5 g/dL (5.8-8.1); Sodium 137 mmol/L (136-145)
[2021-11-21] MEDS: Levothyroxine Sodium 25 MCG TAB PO SCH (05:13)
[2021-11-21] MEDS: Enoxaparin Sodium 30 MG/0.3 ML SYRINGE SC SCH (08:52)
[2021-11-21] MEDS: Cyanocobalamin (Vitamin B-12) 1,000 MCG TAB PO SCH (08:52)
[2021-11-21] MEDS: Multivit, Therapeutic 1 TAB PO SCH (08:52)
[2021-11-21] MEDS: Senokot S 8.6-50 MG TAB PO SCH ×2 (08:52→21:55)
[2021-11-21] MEDS: Folic Acid 1 MG TAB PO SCH (08:52)
[2021-11-21] MEDS: PHOS-NAK 1 PKT PACK PO SCH (11:45)
[2021-11-21] MEDS: cefTRIAXone\\ROCEPHIN 1 GM in Sodium Chloride 0.9% 100 ML IVPB SCH (21:54)
[2021-11-21] MEDS: Bisacodyl 10 MG SUPP PR SCH (21:55)
[2021-11-22] MEDS: Sodium Chloride 0.9% 1,000 ML IV SCH ×2 (04:58→18:49)
[2021-11-22] MEDS: Levothyroxine Sodium 25 MCG TAB PO SCH (05:53)
[2021-11-22 08:34] LABS: Anion Gap 16 mmol/L (10-20); BUN (Urea Nitrogen) 13 mg/dL (9.8-20.1); Calc. Creatinine Clearance 42 mL/min (70-130); Calcium 7.8 mg/dL (7.8-10.44); Carbon Dioxide 20 mmol/L (23-31); Chloride 105 mmol/L (98-107); Estimated GFR 50; Glucose 75 mg/dL (83-110); Potassium 3.7 mmol/L (3.5-5.1); Sodium 137 mmol/L (136-145)
[2021-11-22] MEDS: Folic Acid 1 MG TAB PO SCH (08:44)
[2021-11-22] MEDS: Cyanocobalamin (Vitamin B-12) 1,000 MCG TAB PO SCH (08:44)
[2021-11-22] MEDS: Multivit, Therapeutic 1 TAB PO SCH (08:44)
[2021-11-22] MEDS: Senokot S 8.6-50 MG TAB PO SCH ×2 (08:44→20:53)
[2021-11-22] MEDS: Enoxaparin Sodium 30 MG/0.3 ML SYRINGE SC SCH (08:45)
[2021-11-22] MEDS: cefTRIAXone\\ROCEPHIN 1 GM in Sodium Chloride 0.9% 100 ML IVPB SCH (20:52)
[2021-11-22] MEDS: Bisacodyl 10 MG SUPP PR SCH (20:53)
[2021-11-23] MEDS: Sodium Chloride 0.9% 1,000 ML IV SCH ×3 (06:02→18:02)
[2021-11-23] MEDS: Levothyroxine Sodium 25 MCG TAB PO SCH (06:02)
[2021-11-23] MEDS: Multivit, Therapeutic 1 TAB PO SCH (09:18)
[2021-11-23] MEDS: Senokot S 8.6-50 MG TAB PO SCH ×2 (09:18→20:53)
[2021-11-23] MEDS: Cyanocobalamin (Vitamin B-12) 1,000 MCG TAB PO SCH (09:18)
[2021-11-23] MEDS: Enoxaparin Sodium 30 MG/0.3 ML SYRINGE SC SCH (09:18)
[2021-11-23] MEDS: Folic Acid 1 MG TAB PO SCH (09:18)
[2021-11-23] MEDS: cefTRIAXone\\ROCEPHIN 1 GM in Sodium Chloride 0.9% 100 ML IVPB SCH (20:51)
[2021-11-23] MEDS: Bisacodyl 10 MG SUPP PR SCH (20:53)
[2021-11-24] MEDS: Levothyroxine Sodium 25 MCG TAB PO SCH (05:16)
[2021-11-24] MEDS: Sodium Chloride 0.9% 1,000 ML IV SCH ×2 (05:16→08:19)
[2021-11-24] MEDS: Enoxaparin Sodium 30 MG/0.3 ML SYRINGE SC SCH (08:20)
[2021-11-24] MEDS: Folic Acid 1 MG TAB PO SCH (08:20)
[2021-11-24] MEDS: Cyanocobalamin (Vitamin B-12) 1,000 MCG TAB PO SCH (08:20)
[2021-11-24] MEDS: Senokot S 8.6-50 MG TAB PO SCH (08:20)
[2021-11-24] MEDS: Multivit, Therapeutic 1 TAB PO SCH (08:20)
[2021-11-24] MEDS ORDERED: cefTRIAXone Sodium 1,000 MG in Syringe 0 ML IVPB SCH (14:00)
[2021-11-24] MEDS ORDERED: cefTRIAXone\\ROCEPHIN 1 GM in Sodium Chloride 0.9% 100 ML IVPB SCH (14:00)
[2021-11-24 17:33] VITALS: BP 143/80; TEMP 98.1
[2021-11-24] MEDS ORDERED: Cefuroxime Axetil 250 MG TAB PO SCH (21:00)
== END 2021-11-24 18:47 | DRG 689 ==
LOC: ERS 13:27 → 2NO 17:29 → OBSVTOIN 18:52 → T4-A 11-23 17:11
PROVIDERS: ADMIT Hospitalist; ATTEND Hospitalist
DX: N39.0 Urinary tract infection, site not specified (principal); G93.41 Metabolic encephalopathy; N17.9 Acute kidney failure, unspecified; Z20.822 Contact with and (suspected) exposure to COVID-19; B96.20 Unspecified Escherichia coli [E. coli] as the cause of diseases classified elsewhere; I12.9 Hypertensive chronic kidney disease with stage 1 through stage 4 chronic kidney disease, or unspecified chronic kidney disease; E78.00 Pure hypercholesterolemia, unspecified; I25.10 Atherosclerotic heart disease of native coronary artery without angina pectoris; E87.6 Hypokalemia; E03.9 Hypothyroidism, unspecified; E87.5 Hyperkalemia; N18.30 Chronic kidney disease, stage 3 unspecified; E83.39 Other disorders of phosphorus metabolism; E83.42 Hypomagnesemia; D75.89 Other specified diseases of blood and blood-forming organs; E86.0 Dehydration; Z88.0 Allergy status to penicillin; Z79.899 Other long term (current) drug therapy; Z79.82 Long term (current) use of aspirin; Z79.890 Hormone replacement therapy; Z90.710 Acquired absence of both cervix and uterus; Z90.89 Acquired absence of other organs; Z98.890 Other specified postprocedural states; Z87.891 Personal history of nicotine dependence; Z82.49 Family history of ischemic heart disease and other diseases of the circulatory system
CPT/HCPCS: 36415; 51701; 70450; 71045; 80048; 80053; 81003; 81015; 82140; 82550; 82553; 83605; 83690; 83735; 83880; 84100; 84439; 84443; 84484; 85025; 87040; 87077; 87086; 87186; 93005; 94760; 96365; 96367; 97139; G0378; J0692; J0696; J1650; J3370; J3420; J3475; J3490; J7050; U0002